=== PATIENT | male | born 1970 | race Caucasian/White ===

== ENCOUNTER 2024-10-22 06:33 | Day surgery (SDC) | payer OTHER, SELFPAY | END 2024-10-22 11:16 | disposition home or self-care (01) | LOC: GI 06:33 | PROVIDERS: ATTENDING PHYSICIAN Internal Medicine | DX: Z12.11 Encounter for screening for malignant neoplasm of colon (principal); R19.5 Other fecal abnormalities; K64.8 Other hemorrhoids; K57.30 Diverticulosis of large intestine without perforation or abscess without bleeding; K64.4 Residual hemorrhoidal skin tags; D12.0 Benign neoplasm of cecum; D12.4 Benign neoplasm of descending colon | CPT/HCPCS: 45385; 88305 ==